=== PATIENT | male | born 1955 | race Caucasian/White ===

== ENCOUNTER → 2016-08-01 | Outpatient (CLI) | payer BC, OTHER ==
[~2016-08-01] VITALS: Ht 182.9 cm; Wt 81.6 kg
[~2016-08-01] MED LIST: ALENDRONATE SOD70 MG PO; ASPIRIN325 PO; DILTIAZEM ER60 M1 PO; HYDROCODONE-AP1 EAC6 PO; LOVASTATIN 20 M20 MG PO; PACERONE 200 M200 M1 PO; PRADAXA150 MG PO; TYLENOL325 MG PO; VITAMIN D3400 UNIT PO; XARELTO20 MG PO
--- NOTE | ~2016-08-01 | TEE ---
[facility] [employer] [address] TRANSESOPHAGEAL ECHOCARDIOGRAM Name: JANET DAMIAN [id number] Admission: 08/01/16 Attend Phys: Pavel Chaudhary MD Discharge: Date of : 59 Date of Service: 08/01/16 1716 Report #: [id number] THIS REPORT FOR: //name// APPROVED REPORT EXAM: Transesophageal echocardiogram with color flow Doppler Patient Location: Out-Patient Room #: 9 Blood Pressure: 109/79mmHg HR: 88 bpm Other Information Study Quality: Excellent Indications Atrial Fibrillation Echo Enhancing Agent Indication: Rule out Shunt Agent/Amount Used: Agitated Saline 10 cc Procedure After obtaining informed consent, patient underwent transesophageal echo in the [employer]. Type of Sedation : Conscious Sedation Sedation was administered by Chris Mirza RN. Sedation was achieved with intravenously with: Versed (5 mg) Fentanyl (50 mcg) Transesophageal probe was inserted and advanced into esophagus without difficulty by Pavel Chaudhary MD, [facility]. Echo enhancement indication: R/O Septal defect. Echo enhancement agent administered: Agitated Saline The RADHA was performed without complications. Throughout the procedure, the blood pressure, pulse oximetry, cardiac rhythm, and rate were monitored. The patient tolerated the procedure without adverse effects. Recovery from conscious sedation was uneventful and vital signs were stable. Left Ventricle The left ventricle is normal size. There is normal LV segmental wall motion. There is normal left ventricular wall thickness. The left ventricular systolic function is normal. The left ventricular [facility] [address] [place] [address] TRANSESOPHAGEAL ECHOCARDIOGRAM Name: JANET DAMIAN Room #: REG Cecilia#: [id number] Admission: 08/01/16 Attend Phys: Pavel Chaudhary MD Discharge: Date of : 59 Date of Service: 08/01/16 1716 Report #: [id number] ejection fraction is within the normal range. LVEF is >55%. Diastolic function was not assessed. Right Ventricle The right ventricle is normal size. The right ventricular systolic function is normal. Atria Left atrium is mildly dilated. No thrombus noted in left atrial appendage Bubble study demonstrated no evidence of a shunt Right atrium is mildly dilated. Aortic Valve The aortic valve is normal in structure. No aortic regurgitation is present. There is no aortic valvular stenosis. Mitral Valve The mitral valve is normal in structure. Trace mitral regurgitation. No evidence of mitral valve stenosis. Tricuspid Valve The tricuspid valve is normal in structure. There is no tricuspid valve regurgitation noted. Pulmonic Valve The pulmonary valve is normal in structure. There is no pulmonic valvular regurgitation. Great Vessels The aortic root is normal in size. Pericardium There is no pericardial effusion. <Conclusion> The left ventricular systolic function is normal. The left ventricular ejection fraction is within the normal range. Left atrium is mildly dilated. No thrombus noted in left atrial appendage Right atrium is mildly dilated. [facility] [address] [place] [address] TRANSESOPHAGEAL ECHOCARDIOGRAM Name: JANET DAMIAN Room #: REG [facility].#: [id number] Admission: 08/01/16 Attend Phys: Pavel Chaudhary MD Discharge: Date of : 59 Date of Service: 08/01/161715 Report #: [id number] Bubble study demonstrated no evidence of a shunt Trace mitral regurgitation. <ELECTRONICALLY SIGNED> By: Pavel Chaudhary MD, FACC 08/01/161715 15 15 Pavel Chaudhary MD, FACC /INF
[2016-08-01 07:29] VITALS: BP 126/81
== END ==
LOC: CATH 06:35
DX: I48.91 Unspecified atrial fibrillation (principal); E78.5 Hyperlipidemia, unspecified; M19.90 Unspecified osteoarthritis, unspecified site

== ENCOUNTER → 2016-08-06 | Outpatient (CLI) | payer BC, OTHER | LOC: CAT 08:34 | DX: I47.1 Supraventricular tachycardia (principal); I77.810 Thoracic aortic ectasia ==

== ENCOUNTER 2016-08-10 06:28 | Observation (INO) | payer BC, OTHER ==
[~2016-08-10] VITALS: Ht 182.9 cm; Wt 83.7 kg
[2016-08-10] VITALS (14 sets, daily range): BP systolic 105–135; BP diastolic 48–89
--- NOTE | ~2016-08-10 | P ---
[facility] [place] [address] PROCEDURE REPORT Name: JANET DAMIAN Room #: 201-P [facility]..#: [id number] Admission: 08/10/16 Attend Phys: Lawson Miller MD Discharge: Date of : 59 Report #: [id number] THIS REPORT FOR: //name// CC: Lawson Enriquez PROCEDURE: AFib ablation. PREOPERATIVE DIAGNOSIS: Paroxysmal atrial fibrillation. POSTOPERATIVE DIAGNOSIS: Paroxysmal atrial fibrillation. HISTORY OF PRESENT ILLNESS: The patient is a 61-year-old male with history of paroxysmal AFib, here for AFib ablation. ANESTHESIA: The patient underwent general anesthesia with no anesthesia related complications. DESCRIPTION OF PROCEDURE: The patient underwent informed consent. We discussed the details of the procedure including the risks, which include, but not limited to bleeding, vascular damage, cardiac perforation, stroke, CT as well as damage to the [place] conduction system requiring permanent pacemaker. He understood these risks and is willing to proceed. As such, he was brought to the EP laboratory in a fasting and nonsedated state, prepped and draped in a sterile fashion. Next, I injected lidocaine to the right femoral groin region and obtained access to the right femoral vein times 3. In the right femoral vein, I placed a 9-Haitian, 8-Haitian and 7-Haitian locking sheath using the modified Seldinger technique. Under fluoroscopic guidance, I placed a decapolar catheter easily in the coronary sinus and an ice catheter in the right atrium. Next, I performed 3D mapping of the left atrium using CartoSound. Next, the patient was systemically heparinized and a transseptal was performed using an SL1 sheath and [place] needle. This was straightforward. Initially had some difficulty trying to advance the SL1, but eventually this past into the left atrium. Next, via the SL1 sheath, I placed Lasso catheter and I created 3D geometry of the left atrium with specific emphasis of the two left and two right pulmonary veins as well as left atrial appendage. This was merged with CartoSound. Next, I exchanged the SL1 sheath for the cryo sheath and placed the cryoballoon into the left atrium. Next, the left superior pulmonary vein was isolated in 2 freezes. The left superior isolated on the second freeze within 85 seconds. I therefore performed a freeze of 240 seconds on that second freeze. The left inferior pulmonary vein isolated within 65 seconds of the first freeze and I performed a second freeze of 240 seconds as well. Next, I turned my attention to the right superior pulmonary vein and this was partially isolated with the first 2 freezes, but there was still some small electrograms left. I then performed slightly more inferior freeze in this isolated on the third freeze within 20 seconds of the third [facility] [address] [place] [address] PROCEDURE REPORT Name: RICKIEJANET Room #: 201-P [facility] Ramone Brooks#: [id number] Admission: 08/10/16 Attend Phys: Lawson Miller MD Discharge: Date of : 59 Report #: [id number] freeze. I then went and looked at the left superior vein again and this remained isolated and I then re-interrogated the left inferior vein and this was reconnected. I therefore performed a third freeze in this left inferior pulmonary vein and this was isolated within 26 seconds. This third freeze was of 240 seconds duration. Next, I obtained access to the right inferior pulmonary vein. The right inferior pulmonary vein isolated within 20 seconds of the first freeze and therefore I only performed a single freeze of 240 seconds. This second freeze had a maximum temperature of -54 degrees. While freezing the right-sided veins, phrenic nerve pacing was performed from the decapolar catheter placed at the subclavian veins/SVC junction. There was never any phrenic nerve compromise. As such, all veins were isolated. Preablation, the patient was in sinus rhythm with a sinus cycle length of 1140 milliseconds, MN interval 180 milliseconds, QRS duration 96 milliseconds, QT interval 448 milliseconds. While initially taking anatomy with the Lasso catheter, the patient had a brief run of atrial fibrillation that lasted about 2 minutes and terminated on its own. Post-ablation, the patient remained in sinus rhythm with a sinus cycle length of 935 milliseconds, a MN interval of 185 milliseconds, QRS duration of 95 milliseconds and a QT interval of 435 milliseconds. Using intracardiac ultrasound, I verified that there was no pericardial effusion. As such, all four veins were isolated. I pulled all catheters to the right atrium. The patient then received systemic protamine and once the ACT was within acceptable range, sheaths were pulled and hemostasis was obtained. The patient awoke neurologically and hemodynamically intact with no complications and no significant bleeding. CONCLUSIONS: Successful isolation of the 4 pulmonary veins using cryoablation. By: 1202 1613 Lawson Miller MD /nt
--- NOTE | ~2016-08-10 | H ---
[facility] [address] [place] [address] HISTORY AND PHYSICAL Name: JANET DAMIAN Room #: 201-P [facility] Ramone Brooks#: [id number] Admission: 08/10/16 Attend Phys: Lawson Miller MD Discharge: 08/11/16 Date of : 59 Report #: [id number] THIS REPORT FOR: //name// For History and Physical, please see office documentation/handwritten note in the patient's medical record. By: 1556 Lawson Miller MD /
--- NOTE | ~2016-08-10 | D ---
[facility] [place] [address] DISCHARGE SUMMARY Name: JANET DAMIAN Room #: 201-P [facility] Ramone Brooks#: [id number] Admission: 08/10/16 Attend Phys: Lawson Miller MD Discharge: 08/11/16 Date of : 59 Report #: [id number] THIS REPORT FOR: //name// CC: Lawson Enriquez DO DATE OF SERVICE: 08/11/2016 DISCHARGE SUMMARY DISCHARGE DIAGNOSES: 1. Paroxysmal atrial fibrillation. 2. Hyperlipidemia. 3. Sleep apnea. CONSULTANTS: 1. Dr. Lawson Miller, Electrophysiology. PROCEDURES: 1. Cryoablation of atrial fibrillation. HISTORY OF PRESENT ILLNESS: The patient is a 61-year-old white male, who was brought to the outpatient department to undergo attempts at cryoablation of atrial fibrillation. The patient presented in the past for colonoscopy and was found to be in atrial fibrillation. He was asymptomatic. In the past, I tried him on Multaq, which he could not tolerate. He was placed on Rythmol, but continued to have recurrent atrial fibrillation. Previous workup included a nuclear stress test in 2011 that showed no ischemia. Echocardiogram in 2015 showed an ejection fraction of 55%. In the past, he developed bradycardia on beta blockers. When I saw him in the office in April, he was actually in atrial flutter. He was started on Xarelto as an outpatient and recommended he be admitted for amiodarone loading. The patient had no significant complaints. He was admitted to [place] [facility] in April and actually converted to sinus rhythm on his own. He was then loaded with amiodarone. He tolerated this well. He did undergo baseline pulmonary function studies that showed no decrease in vital capacity or diffusion capacity. There is no evidence of amiodarone toxicity. Normal ventilatory studies. He had a sleep study because of snoring episodes and is found to have sleep apnea. He is now fitted with CPAP. The patient was discharged after 4 days of amiodarone loading. He has had no significant palpitations since that time, although he was concerned about long-term use of amiodarone with possible toxicity. I therefore recommended he discuss with Dr. Miller for possible ablation. He saw Dr. Miller in the office and Dr. Miller felt the patient was a good candidate for attempts at ablation. In anticipation, the patient actually underwent an outpatient RADHA by myself 2 weeks ago. This showed no evidence of an intracavitary thrombus. The patient had no [facility] [address] [place] [address] DISCHARGE SUMMARY Name: RICKIEJANET Room #: 201-P [facility] Ramone Brooks#: [id number] Admission: 08/10/16 Attend Phys: Lawson Miller MD Discharge: 08/11/16 Date of : 59 Report #: [id number] other complaints at this time. PAST MEDICAL HISTORY: Otherwise significant for spinals fusion and hyperlipidemia. No history of hypertension or diabetes. He does snore at night. He has chronic back pain. MEDICATIONS: Consists of hydrocodone, Flonase nasal spray, omeprazole, and lovastatin. He had been taking an aspirin a day, but Dr. Miller recently started him on Pradaxa 150 mg twice day for anticoagulation and he takes amiodarone 200 mg a day. PHYSICAL EXAMINATION: VITAL SIGNS: Revealed blood pressure 120/80 and pulse 60. CHEST: Clear to auscultation. CARDIAC: Regular bradycardia. ABDOMEN: Soft. EXTREMITIES: No edema. SKIN: Warm and dry. Recent chest x-ray, normal heart size, clear lung parra. LABORATORY DATA: Included cholesterol 162, triglyceride 99, HDL 57, LDL 87, TSH 1, T4 7.5, hemoglobin 13.6. HOSPITAL COURSE: The patient brought to the outpatient department. He was seen by Dr. Miller. He was taken to the EP lab. He underwent cryoablation of paroxysmal atrial fibrillation. He actually had an episode of atrial fibrillation during the procedure. However, at the end of the procedure, he was in sinus rhythm. He tolerated the procedure well. The sheath was removed and there was no hematoma in the right groin following venous access. The following day, the patient is ambulating, had no further complaints. He remained in sinus rhythm with sinus bradycardia. He was discharged to continue his home medications include omeprazole 1 tablet a day, lovastatin 40 mg at bedtime, Pradaxa 150 mg twice a day, and amiodarone 200 mg daily. He will return to see me in Cardiology Clinic in one month. He is scheduled to see Dr. Miller in October. If he remains in sinus rhythm, Dr. Miller will discuss possibly discontinue the amiodarone and Pradaxa since the patient has a LIEN score of 0. At that time, he will go back on aspirin 325 mg daily. He will continue his CPAP at nighttime for his sleep apnea. <ELECTRONICALLY SIGNED> By: Pavel Chaudhary MD, [facility] 08/14/16 0842 [id number] 1314 Pavel Chaudhary MD, FACC /nt
[2016-08-10 07:08] LABS: ABSOLUTE NEUTROPHILS 3.9 thou/uL (1.4-8.2); BASOPHILS 0.8 % (0.0-2.0); EOSINOPHILS 1.8 % (0.0-3.0); HEMATOCRIT 42.9 % (42.0-52.0); HEMOGLOBIN 14.4 gm/dL (14.0-18.0); LYMPHOCYTES 22.2 % (24.0-44.0); MCH 31.8 pg (26.0-34.0); MCHC 33.7 g/dL (28.0-37.0); MCV 94.3 fL (80.0-100.0); MONOCYTES 9.7 % (1.0-8.0); PLATELET COUNT 203 thou/uL (150-400); POLYS 65.5 % (36.0-66.0); RBC 4.54 mil/uL (4.50-6.00); RDW 13.9 % (10.5-14.5); WBC 5.9 thou/uL (4.0-11.0)
[2016-08-10 07:09] LABS: MANUAL DIFF NO
[2016-08-10 07:15] LABS: CALCIUM 8.8 mg/dL (8.5-10.1); CREATININE 1.1 mg/dL (0.7-1.3); POTASSIUM 4.1 mmol/L (3.5-5.1)
[2016-08-10 07:20] LABS: ALBUMIN 4.5 g/dL (3.4-5.0); TOTAL BILIRUBIN 0.5 mg/dL (<0.1-1.0); TOTAL PROTEIN 7.6 g/dL (6.4-8.2)
[2016-08-10 07:24] LABS: APTT 33.3 Seconds (24.5-32.8); INR 1.1; PROTIME 11.2 Seconds (9.3-11.4)
[2016-08-11 04:45] VITALS: BP 94/52
[2016-08-11 04:54] VITALS: BP 94/52
[2016-08-11 06:55] VITALS: BP 99/61
[2016-08-11 14:15] VITALS: BP 99/61
== END 2016-08-11 14:35 | disposition home or self-care (01) ==
LOC: CATH → 2N 13:36 → CATH 14:26 → 2N 08-11 14:35
PROVIDERS: Internal Medicine Cardiovascular Disease
DX: I48.0 Paroxysmal atrial fibrillation (principal); E78.5 Hyperlipidemia, unspecified; G47.30 Sleep apnea, unspecified; Z79.899 Other long term (current) drug therapy; Z79.82 Long term (current) use of aspirin; Z83.3 Family history of diabetes mellitus; I47.1 Supraventricular tachycardia
CPT/HCPCS: 62110; 62900; 65020; 65043; 70005